=== PATIENT | female | born 1985 | race African-American/Black ===

== ENCOUNTER 2021-07-28 08:31 | Emergency (ER) | payer OTHER, SELFPAY ==
[2021-07-28] MEDS ORDERED: Benzonatate 100 MG CAP ONE (09:04)
[2021-07-28] MEDS ORDERED: Acetaminophen/Codeine 30-300mg Tablet ONE (09:04)
[2021-07-28 23:43] LABS: SARS-CoV-2 PCR by NAA Not Detected (NotDetected)
== END 2021-07-28 08:54 | disposition home or self-care (01) ==
LOC: MADERS 08:31
DX: J20.8 Acute bronchitis due to other specified organisms (principal); J02.8 Acute pharyngitis due to other specified organisms; F17.210 Nicotine dependence, cigarettes, uncomplicated; Z20.822 Contact with and (suspected) exposure to COVID-19
CPT/HCPCS: 71046; 87804; U0003; U0005

== ENCOUNTER 2024-04-29 07:58 | Emergency (ER) | payer OTHER, SELFPAY ==
[2024-04-29 08:16] LABS: Bilirubin Negative (Negative); Blood, Urine Negative (Negative); Clarity Clear (Clear); Glucose, Urine (Dipstick) Negative (Negative); Ketone, Urine Negative (Negative); Leukocyte Negative (Negative); Nitrite Negative (Negative); Protein, Urine (Dipstick) Negative (Neg-Trace); Specific Gravity, Urine 1.025 (1.005-1.030); Urobilinogen 0.2 mg/dL (Less than 2); pH, Urine 6.5 (5.0-9.0)
[2024-04-29 08:24] LABS: Pregnancy Test - Urine (BHCG) Negative (Negative); Pregu Control Background? CLEAR/WHITE (CLR/WHITE); Pregu Control Bar Appear? YES (CONTROL BAR); RBC/HPF 0-3 HPF (0-3); Specific Gravity 1.025 (1.002-1.036)
[2024-04-29 08:25] LABS: Bacteria/HPF 2+ HPF (None Seen); CAUTI Indications for Culture Pelvic or flank pain; WBC/HPF 0-3 HPF (0-3)
[2024-04-29 08:27] LABS: Urine Culture Reflex No No
[2024-04-29] MEDS ORDERED: Sodium Chloride 0.9% 1,000 ML ONE (08:31)
[2024-04-29] MEDS ORDERED: Ondansetron PF 4 MG/2 ML Vial ONE (08:31)
[2024-04-29] MEDS ORDERED: Ketorolac Tromethamine 30 MG (1 mL) VIAL ONE (08:31)
[2024-04-29 09:05] LABS: #Basophils 0.1 thou/uL (0.0-0.2); #Eosinophils 0.1 thou/uL (0.0-0.7); #Lymphocytes 1.9 thou/uL (1.20-3.40); #Monocytes 0.5 thou/uL (0.11-0.59); %Basophils 0.8 % (0.0-1.0); %Eosinophils 1.8 % (0.0-10.0); %Lymphocytes 24.5 % (21.0-51.0); %Monocytes 6.9 % (0.0-10.0); Hematocrit 33.3 % (36.0-47.0); Hemoglobin 10.9 g/dL (12.0-16.0); Mean Corpuscular HGB CONC 32.7 g/dL (32.0-36.0); Mean Corpuscular Hemoglobin 28.1 pg (27.0-31.0); Mean Corpuscular Volume 86.2 fl (78.0-98.0); Mean Platelet Volume 8.9 fL (7.4-10.4); Platelet Count 215 10x3/uL (130-400); RBC Distribution Width 12.2 % (11.5-14.5); Red Blood Cell (RBC) Count 3.86 mill/uL (4.20-5.40); White Blood Cell (WBC) Count 7.5 10x3/uL (4.8-10.8)
[2024-04-29 09:17] LABS: ALT (SGPT) 20 U/L (8-55); AST (SGOT) 25 U/L (5-34); Albumin 2.8 g/dL (3.5-5.0); Alkaline Phosphatase 112 U/L (40-110); Anion Gap 12 mmol/L (10-20); BUN (Urea Nitrogen) 7 mg/dL (7.0-18.7); Bilirubin, Total 0.5 mg/dL (0.2-1.2); Calc. Creatinine Clearance 0 mL/min (70-130); Carbon Dioxide 23 mmol/L (22-29); Chloride 107 mmol/L (98-107); Estimated GFR 129; Globulin 3.5 g/dL (2.4-3.5); Glucose 101 mg/dL (70-105); Lipase 25 U/L (8-78); Protein, Total 6.3 g/dL (6.0-8.3); Sodium 139 mmol/L (136-145)
[2024-04-29] MEDS ORDERED: Potassium Bicarbonate/Cit Ac 20 MEQ TAB ONE (09:42)
== END 2024-04-29 09:53 | disposition home or self-care (01) ==
LOC: MADERS 07:58
DX: D64.9 Anemia, unspecified (principal); E87.6 Hypokalemia; R10.32 Left lower quadrant pain; R11.2 Nausea with vomiting, unspecified; F17.210 Nicotine dependence, cigarettes, uncomplicated; Z55.6 Problems related to health literacy
CPT/HCPCS: 74176; 80053; 81001; 81025; 83690; 85025; J1885; J2405; J7030